=== PATIENT | female | born 1980 | race Two or more races ===

== ENCOUNTER 2021-09-02 01:23 | Emergency (ER) | payer SELFPAY ==
[~2021-09-02] VITALS: Ht 165.1 cm; Wt 125.0 kg
--- NOTE | 2021-09-02 01:43 | EKG ---
[facility] [address] [place] [address] Test Date: 2021-09-02 Test Time: 01:40:30 Pat Name: ANGELO PAGE Department: Room: Gender: F Weight Trainer: : 1980 Requested By: TATIANA ROCK Order Number: [id number] Reading MD: Measurements Intervals [place] Rate: 75 P: -48 VA: 128 QRS: 19 QRSD: 82 T: 15 QT: 364 QTc: 409 Interpretive Statements SINUS RHYTHM NORMAL ECG RI6.02 No previous ECG available for comparison
--- NOTE | 2021-09-02 01:43 | PHYS DOC ---
General Adult HPI: HPI: 41 yo F PMH HLD tobacco use presents to the ed with her son, (patient consents to his/her/their knowledge and involvement in pts' medical care), c/o intermittent bilateral upper, nonradiating, chest pressure and palpitations with associated body aches and malaise that started 20 minutes after receiving her first Covid vaccination yesterday. States chest pain lasted for only a few minutes and had resolved but reoccurred earlier today just prior to arrival. Has no active chest pain in the emergency department-reports it has resolved. Primary care physician is Devika Baum at [facility]. Did not refill her cholesterol medication. Last menstrual period was 3 days ago. Mother with hist ory of coronary disease. No personal or family history of AAA, AAD, CTD (eh[place] or marfans), cardiac arrhythmias (need for AICD), sudden or unexplainable (under 50 years of age or with exertion), or clotting disorders. Is not on any control. No recent hospitalizations, surgeries or prolonged sitting/travel. Patient is Welsh-speaking but does understand some [place] Islander. Presents with her son who she requested to translate. Pad Extraction Tender services were offered. Review of Systems: Review of Systems: Constitutional: Denies fever or chills. [] Eyes: Denies change in visual acuity. [] HENT: Denies nasal congestion or sore throat. [] Respiratory: Denies cough or hemoptysis Cardiovascular: Denies syncope or edema. [] GI: Denies abdominal pain, nausea, vomiting, bloody stools or diarrhea. [] : Denies dysuria or vaginal bleeding Musculoskeletal: Denies back pain or joint pain. [] Integument: Denies rash or diaphoresis Neurologic: Denies headache, focal weakness or sensory changes. [] Endocrine: Denies polyuria or polydipsia. [] Lymphatic: Denies swollen glands. [] Psychiatric: Denies depression or anxiety. [] Heart Score: C/O Chest Pain: Yes HEART Score for Chest Pain: HEART Score for Chest Pain Response (Comments) Value History Slighlty/Non-Suspicious 0 ECG Normal 0 Age < 45 0 Risk Factors >3 Risk Factors or Hx CAD 2 Troponin < Normal Limit 0 Total 2 Risk Factors: Risk Factors: DM, Current or recent (<one month) smoker, HTN, HLP, family his tory of CAD, obesity. Risk Scores: Score 0 - 3: 2.5% MACE over next 6 weeks - Discharge Home Score 4 - 6: 20.3% MACE over next 6 weeks - Admit for Clinical Observation Score 7 - 10: 72.7% MACE over next 6 weeks - Early Invasive Strategies Physical Exam: PE: Constitutional: Well developed, well nourished, no acute distress, non-toxic appearance, obese HENT: Normocephalic, atraumatic, Eyes: EOMI, conjunctiva normal, no discharge. Neck: Normal range of motion, supple, Cardiovascular: S1/2 present, regular rhythm Lungs & Thorax: Speaking in full sentences, bilateral equal chest rise, no tachypnea or increased work of breathing Skin: Warm, dry, no erythema, no rash. [] Back: No tenderness, no CVA tenderness. [] Extremities: No tenderness, no cyanosis, no lower extremity edema Neurologic: Alert and oriented X 3, normal motor function, normal sensory function, no focal deficits noted. [] Psychologic: Affect normal, judgement normal, mood normal. [] EKG: EKG: Sinus rhythm 75 bpm, no axis deviation, normal intervals, no T wave inversion, no ST elevation or ST depression Radiology/Procedures: Radiology/Procedures: IMAGING REPORT Signed PATIENT: ANGELO PAGE ACCOUNT: [id number] : 1980 LOCATION: ER AGE: 41 SEX: F EXAM STATUS: REG ER ORD. PHYSICIAN: TATIANA ROCK DO REASON: cough PROCEDURE: CHEST AP ONLY XR CHEST 1V History: Reason: cough / Spl. Instructions: / History: Comparison: None. Findings: Mild ill-defined bibasilar opacities, left greater than right. No pleural effusion. No pneumothorax. Normal heart size. Impression: 1. Mild ill-defined bibasilar opacities, represent atelectasis or infiltrates including viral pneumonia. Electronically signed by: Alvaro Chappell DO (09/02/2021 2:11 AM) [facility] DICTATED and SIGNED BY: ALVARO CHAPPELL DO DATE: 09/02/21 [id number] 0 Impression: 0 criteria No need for further workup, as <2% chance of PE. If no criteria are positive and clinicians pre-test probability is <15%, PERC Rule criteria are satisfied. Course & Med Decision Making: Course & Med Decision Making Pertinent Labs and Imaging studies reviewed. (See chart for details) Concern for atypical chest pain in the setting of palpitations and body aches after patient received her first COVID-19 vaccination. Symptoms could represent postvaccination immune response. Symptoms have been present for over 6 hours. She is well-appearing, hemodynamically stable with no active chest pain during her ED visit. High sensitive troponin in normal range. Chest x-ray with possible early viral infection. Covid test was negative. Basic labs unremarkable. Patient's heart score is 2 making her low risk for major adverse cardiac event. Patient is PERC negative. Will discharge home with strict ED return precautions were given for typical chest pain, diaphoresis, nausea, vomiting or fever. Encouraged urgent outpatient follow-up with PMD for reevaluation and cardiology for nonemergent outpatient evaluation of chest pain. Life-threatening processes were considered but are low suspicion at this time, given history, physical exam and ED workup. Pt was educated on all prescription medications and adverse effects. All patient's questions were answered and pt was stable at time of discharge. Life/limb-threatening differential includes but is not limited to, acute myocardial infarction, aortic dissection, congestive heart failure, esophageal injury including rupture, surgical abdomen, arrhythmia, cardiomyopathy, myocarditis, pericarditis, peptic ulcer disease, pneumomediastinum, pneumonia, pneumothorax, pulmonary embolus, unstable angina, rib fracture, contusion, pericardial tamponade or effusion, traumatic injury including mediastinal hemorrhage or hematoma, or pulmonary contusion. I have spoken with the patient and/or caregivers. I explained the patient's c ondition, diagnoses and treatment plan based on the information available to me at this time. I have answered the patient and/or caregiver's questions and addressed any concerns. The patient and/or caregivers have a good understanding of patient's diagnosis, condition and treatment plan as can be expected at this point. Vital signs have been stable. Patient's condition is stable and appropriate for discharge from the emergency department. Patient will pursue further outpatient evaluation with primary care physician or other designated or consulting physician as outlined in the discharge instructions. The patient and/or caregivers are agreeable to this plan of care and follow-up instructions have been explained in detail. The patient and/or caregivers have received these instructions in written form and have expressed an understanding of the discharge instructions. The patient and/or caregivers are aware that any significant change of condition or worsening of symptoms should prompt immediate return to this or the closest emergency department or call to [id number] Grajeda Disclaimer: Taras Disclaimer: This electronic medical record was generated, in whole or in part, using a voice recognition dictation system. Departure Departure Impression: Primary Impression: Chest pain Additional Impression: Palpitations Disposition: 01 HOME / SELF CARE / HOMELESS Condition: STABLE Referrals: NO PCP (PCP) Follow-up with your primary care physician in 24 to 48 hours OR FOLLOW UP WITH FAMILY MEDICINE: [address] [facility] [place] [address] Patient Instructions: Chest Pain (Nonspecific) Additional Instructions: FOLLOW UP WITH CARDIOLOGY: FOR DEFINITIVE MANAGEMENT of nonemergent, atypical chest pain [facility] [address] [place] [address] EMERGENCY DEPARTMENT GENERAL DISCHARGE INSTRUCTIONS Thank you for coming to [facility] Emergency Department (ED) today and trusting us with you care. We trust that you had a positive experience in our Emergency Department. If you wish to speak to the department management, you may call the Director at [phone]. YOUR FOLLOW UP INSTRUCTIONS ARE FOLLOWS: 1. Do you have a private Doctor? If you do not have a private doctor, please ask for a resource list of physicians or clinics that may be able to assist you with follow up care. 2. The Emergency Physicain has interpreted your x-rays. The X-Ray specialist will also review them. If there is a change in the findings, you will be notified in 48 hours when at all possible. 3. A lab test or culture has been done, your results will be reviewed and you will be notified if you need a change in treatment. ADDITIONAL INSTRUCTIONS AND INFORMATION: 1. Your care today has been supervised by a physician who is specially trained in emergency care. Many problems require more than one evaluation for a complete diagnosis and treatment. We recommend that you schedule your follow up appointment as recommended to ensure complete treatment of you illness or injury. If you are unable to obtain follow up care and continue to have a problem, or if your condition worsens, we recommend that you return to the ED. 2. We are not able to safely determine your condition over the phone nor are we able to give sound medical advice over the phone. For these safety reasons, if you call for medical advice we will ask you to come to the ED for further evaluation. 3. If you have any questions regarding these discharge instructions please call the ED at [phone]. SAFETY INFORMATION: In the interest of safety, wellness, and injury prevention; we encourage you to wear your sealbelt, if you smoke; quite smoking, and we encourage family to use a protective helmet for bicycling and other sporting events that present an increased risk for head injury. IF YOUR SYMPTOMS WORSEN OR NEW SYMPTOMS DEVELOP, OR YOU HAVE CONCERNS ABOUT YOUR CONDITION; OR IF YOUR CONDITION WORSENS WHILE YOU ARE WAITING FOR YOUR FOLLOW UP APPOINTMENT; EITHER CONTACT YOUR PRIMARY CARE DOCTOR, THE PHYSICIAN WHOSE NAME AND NUMBER YOU WERE GIVEN, OR RETURN TO THE ED IMMEDIATELY. TATIANA FOUNTAIN DO Sep 02, 2021 01:43
[2021-09-02] MEDS ORDERED: KETOROLAC 60 MG/2 ML VIAL. IM ONE (01:45)
[2021-09-02] MEDS ORDERED: ACETAMINOPHEN 325 MG TABLET. PO ONE (01:45)
--- NOTE | 2021-09-02 02:14 | RAD ---
XR CHEST 1V History: Reason: cough / Spl. Instructions: / History: Comparison: None. Findings: Mild ill-defined bibasilar opacities, left greater than right. No pleural effusion. No pneumothorax. Normal heart size. Impression: 1. Mild ill-defined bibasilar opacities, represent atelectasis or infiltrates including viral pneumo terrance. Electronically signed by: Alvaro Chappell DO (09/02/2021 2:11 AM) [facility]
[2021-09-02 03:08] LABS: BASO # 0.1 x10^3/uL (0.0-0.2); BASO % 1 % (0-3); EOS # 0.1 x10^3/uL (0.0-0.7); EOS % 1 % (0-3); HEMOGLOBIN 12.1 g/dL (12.0-15.5); LYMPH # 1.1 x10^3/uL (1.0-4.8); LYMPH % 13 % (24-48); MEAN CORPUSCULAR HEMOGLOBIN 28 pg (25-35); MEAN CORPUSCULAR HGB CONC 34 g/dL (31-37); MEAN CORPUSCULAR VOLUME 82 fL (79-100); MONO # 0.5 x10^3/uL (0.0-1.1); MONO % 6 % (0-9); NEUT # 6.9 x10^3/uL (1.8-7.7); NEUT % 79 % (31-73); PLATELET COUNT 262 x10^3/uL (140-400); RED BLOOD COUNT 4.39 x10^6/uL (3.50-5.40); RED CELL DISTRIBUTION WIDTH 14.2 % (11.5-14.5); WHITE BLOOD COUNT 8.7 x10^3/uL (4.0-11.0)
[2021-09-02 03:15] LABS: CALCIUM 8.2 mg/dL (8.5-10.1); CREATININE 0.8 mg/dL (0.6-1.0); GFR 78.3; POTASSIUM 3.5 mmol/L (3.5-5.1)
[2021-09-02 03:21] LABS: ALBUMIN 3.1 g/dL (3.4-5.0); ALBUMIN/GLOBULIN RATIO 0.8 (1.0-1.7); TOTAL BILIRUBIN 0.6 mg/dL (0.2-1.0); TOTAL PROTEIN 7.1 g/dL (6.4-8.2)
[2021-09-02 05:30] VITALS: BP 145/81
--- NOTE | 2021-09-03 12:12 | NUR ---
IP: Informed pt of negative covid test. Pt verbalized understanding.
== END 2021-09-02 05:45 | disposition home or self-care (01) ==
LOC: ER 01:23
DX: R07.89 Other chest pain (principal); R00.2 Palpitations; Z20.822 Contact with and (suspected) exposure to COVID-19; R53.81 Other malaise; Z72.0 Tobacco use; E78.5 Hyperlipidemia, unspecified
CPT/HCPCS: 36415; 71045; 80053; 81025; 84484; 85025; 87426; 93005; 96372; 99285; J1885; U0003; U0005